=== PATIENT | male | born 1945 | race Caucasian/White ===

== ENCOUNTER 2018-05-31 13:36 | Emergency (ER) | payer MEDICARE, BC, OTHER ==
[~2018-05-31] VITALS: Ht 180.3 cm; Wt 84.4 kg
[2018-05-31] MEDS ORDERED: ONE-DAILY MULT1 EAC1 PO (13:51)
[2018-05-31] MEDS ORDERED: TOPAMAX 100 MG100 MG PO (13:51)
[2018-05-31] MEDS ORDERED: NEURONTIN 300300 M1 PO (13:51)
[2018-05-31 14:24] LABS: INFLUENZA B ANTIGEN None Detected (None Detect)
[2018-05-31] MEDS ORDERED: OSELB75 PO (14:37)
[2018-05-31 14:42] VITALS: BP 130/73
== END 2018-05-31 14:42 | disposition home or self-care (01) ==
LOC: M.ERS 13:36
PROVIDERS: Nurse Practitioner Family
DX: J10.1 Influenza due to other identified influenza virus with other respiratory manifestations (principal)

== ENCOUNTER 2020-06-16 08:52 | Inpatient (IN) | payer MEDICARE, BC, OTHER ==
[~2020-06-16] VITALS: Ht 180.3 cm; Wt 107.5 kg
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
--- NOTE | ~2020-06-16 | EEG ---
[address] [address] EEG STUDY REPORT Name: SAGE GONZALES Room: [address] IN M.R.#: [id number] Admission: 06/17/20 Attend Phys: Rudy Bob MD Discharge: Date of : 49 Report #: [id number] THIS REPORT FOR: cc: ROHIT CHENG MD, CHADWICK MD Khosla, Parveen K. MD ~ DOC #: [id number] Keith Pablo MD DATE OF SERVICE: 06/17/2020 This patient is being evaluated for the possibility of seizure. EEG was done by placing the electrode by standard 10-20 system of electrode placement. Both referential and sequential montages were used for recording. Background activity in this patient's EEG is about 9-10 Hz and 30 microvolt. The patient became drowsy and that is associated with bilateral slowing and vertex sharp waves. Photic stimulation is unremarkable. Throughout the record, no active epileptiform activity was noticed. IMPRESSION: This patient's EEG is intermixed with theta range slowing on both sides. That is a nonspecific abnormality which can occur with dementia, encephalopathy, effect of psychotropic medication. No active epileptiform activity was noticed during this record. Thank you very much for this referral. Keith Pablo MD PK/MAX By: [id number] [id number] Pablo MD /mary
[~2020-06-16 08:52] MED LIST: NEURONTIN 300300 M1 PO; ONE-DAILY MULT1 EAC1 PO; OSELB75 PO; TOPAMAX 100 MG100 MG PO
[2020-06-16 09:01] VITALS: BP 173/83
[2020-06-16] MEDS ORDERED: DEPAKOTE ER500 M1 PO (09:04)
[2020-06-16] MEDS ORDERED: PROSCAR 5MG TABL5 MG PO (09:04)
[2020-06-16] MEDS ORDERED: DEPAKOTE 250MG250 MG PO (09:04)
[2020-06-16] MEDS ORDERED: FLOMAX0.4 MG PO (09:05)
[2020-06-16] MEDS ORDERED: NEURONTIN 400M400 M2 PO (09:05)
[2020-06-16] MEDS ORDERED: XYZAL5 MG PO (09:05)
[2020-06-16] MEDS ORDERED: SUPER THERAVIT1 EACH PO (09:05)
[2020-06-16] MEDS ORDERED: MAGNESIUM CITR100 GM PO (09:05)
[2020-06-16] MEDS ORDERED: PRAVACHOL40 MG PO (09:05)
[2020-06-16] MEDS ORDERED: L-LYSINE500 M2 PO (09:06)
[2020-06-16] MEDS ORDERED: VITAMIN B125000 MCG PO (09:06)
[2020-06-16 09:50] LABS: ABSOLUTE EOSINOPHILS 0.1 thou/uL (0.0-0.7); ABSOLUTE LYMPHOCYTES 3.9 thou/uL (0.8-5.3); ABSOLUTE NEUTROPHILS 2.7 thou/uL (1.6-8.1); BASOPHILS 0.3 %; EOSINOPHILS 1.8 %; HEMATOCRIT 48.3 % (42.0-52.0); HEMOGLOBIN 16.2 gm/dL (14.0-18.0); LYMPHOCYTES 50.9 %; MCH 32.4 pg (26.0-34.0); MCHC 33.4 g/dL (28.0-37.0); MCV 97.1 fL (80.0-100.0); MONOCYTES 12.4 %; MPV 7.8 fl. (7.2-11.1); NUCLEATED RBCS 0 /100WBC; PLATELET COUNT* 180 thou/uL (150-400); POLYS 34.6 %; RBC 4.98 mil/uL (4.50-6.00); RDW-CV 13.1 % (10.5-14.5); WBC 7.7 thou/uL (4.0-11.0)
[2020-06-16 10:00] LABS: CALCIUM 9.1 mg/dL (8.5-10.1); CREATININE 1.1 mg/dL (0.6-1.3); POTASSIUM 4.1 mmol/L (3.5-5.1)
[2020-06-16 10:10] LABS: ALBUMIN 3.3 g/dL (3.4-5.0); TOTAL BILIRUBIN 0.5 mg/dL (<0.1-1.0); TOTAL PROTEIN 6.1 g/dL (6.4-8.2)
[2020-06-16 12:16] VITALS: BP 129/56
[2020-06-16 12:45] VITALS: BP 149/72
--- NOTE | 2020-06-16 15:46 | EKG ---
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 06/16/20 1546 0857 0857 Senthil Horton MD, [facility] /EPI
[2020-06-16 21:00] VITALS: BP 151/91
[2020-06-17] VITALS: BP 151/87
[2020-06-17 04:00] VITALS: BP 143/73
[2020-06-17 04:31] LABS: ABSOLUTE EOSINOPHILS 0.1 thou/uL (0.0-0.7); ABSOLUTE LYMPHOCYTES 4.1 thou/uL (0.8-5.3); ABSOLUTE MONOCYTES 1.4 thou/uL (0.0-1.2); ABSOLUTE NEUTROPHILS 5.9 thou/uL (1.6-8.1); BASOPHILS 0.3 %; EOSINOPHILS 0.8 %; HEMOGLOBIN 15.5 gm/dL (14.0-18.0); LYMPHOCYTES 35.4 %; MCH 32.4 pg (26.0-34.0); MCHC 33.1 g/dL (28.0-37.0); MCV 97.9 fL (80.0-100.0); MPV 8.1 fl. (7.2-11.1); NUCLEATED RBCS 0 /100WBC; PLATELET COUNT* 186 thou/uL (150-400); POLYS 51.5 %; RDW-CV 12.9 % (10.5-14.5); WBC 11.4 thou/uL (4.0-11.0)
[2020-06-17 04:36] LABS: CALCIUM 8.6 mg/dL (8.5-10.1); CREATININE 1.1 mg/dL (0.6-1.3)
--- NOTE | 2020-06-17 11:03 | EKG ---
[place] [address] ELECTROCARDIOGRAM REPORT Name: SAGE GONZALES Room: [address]#: [id number] Admission: 06/16/20 Attend Phys: Rudy Bob, Discharge: Date of : 49 Date of Service: 06/16/201940 Report #: [id number] THIS REPORT FOR: //name// 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 : 1945 Requested By: Rudy Bob Order Number: [id number] Stefan MD: Senthil Horton Measurements Intervals [place] Rate: 81 P: 34 FL: 168 QRS: 24 QRSD: 103 T: 68 QT: 398 QTc: 462 Interpretive Statements Sinus rhythm Borderline repol abnrm, anterolateral leads Baseline wander in lead(s) V1,V2,V3,V4,V5,V6 Compared to ECG 06/16/2020 08:57:48 No significant changes Electronically Signed On 06-17-2020 11:02:57 CDT by Senthil Horton [email or web address] <ELECTRONICALLY SIGNED> By: Senthil Horton MD, FAC 06/17/20 1102 40 40 Senthil Horton MD, [facility] /EPI
--- NOTE | 2020-06-17 11:24 | 2DMMODE ---
[place] [address] 2 D/M-MODE ECHOCARDIOGRAM Name: SAGE GONZALES Room: [address] Umair Sampson#: [id number] Admission: 06/16/20 Attend Phys: Rudy Bob, Discharge: Date of : 49 Date of Service: 06/17/20 1123 Report #: [id number] THIS REPORT FOR: cc: ROHIT CHENG MD, CHADWICK MD Blick, David R. MD [facility] ~ APPROVED REPORT Study performed: 06/17/2020 09:29:03 EXAM: Comprehensive 2D, Doppler, and color-flow Echocardiogram Patient Location: In-Patient Room #: [facility] Status: routine BSA: 2.27 HR: 64 bpm BP: 143/73 mmHg Rhythm: NSR Other Information Study Quality: Good Indications Chest Pain 2D Dimensions IVSd: 12.13 (7-11mm) LVOT Diam: 20.44 (18-24mm) LVDd: 42.76 mm PWd: 10.67 (7-11mm) Ascending Ao: 41.51 (22-36mm) LVDs: 26.34 (25-40mm) Aortic Root: 36.16 mm Volumes Left Atrial Volume (Systole) LA ESV Index: 26.20 mL/m2 Aortic Valve AoV Peak Kvng.: 1.97 m/s AO Peak Gr.: 15.49 mmHg LVOT Max P.08 mmHg AO Mean Gr.: 9.69 mmHg LVOT Mean P.49 mmHg LVOT Max V: 0.88 m/s AO V2 VTI: 40.05 cm LVOT Mean V: 0.56 m/s GEORGE (VTI): 1.67 cm2 LVOT V1 VTI: 20.41 [place] [address] 2 D/M-MODE ECHOCARDIOGRAM Name: SAGE GONZALES Room: [address]#: [id number] Admission: 06/16/20 Attend Phys: Rudy Bob, Discharge: Date of : 49 Date of Service: 06/17/20 1123 Report #: [id number] Mitral Valve E/A Ratio: 0.89 MV Decel. Time: 284.87 ms MV E Max Kvng.: 0.70 m/s MV PHT: 82.61 ms MVA (PHT): 2.66 cm2 TDI E/Lateral E': 6.36 E/Medial E': 10.00 Medial E' Kvng.: 0.07 m/s Lateral E' Kvng.: 0.11 m/s Pulmonary Valve PV Peak Kvng.: 0.94 m/s PV Peak Gr.: 3.52 mmHg Left Ventricle The left ventricle is normal size. There is normal LV segmental wall motion. There is normal left ventricular wall thickness. Left ventricular systolic function is normal. The left ventricular ejection fraction is within the normal range. LVEF is 55-60%. Grade I - abnormal relaxation pattern. Right Ventricle The right ventricle is normal size. The right ventricular systolic function is normal. Atria The left atrium size is normal. The right atrium size is normal. Aortic Valve Aortic valve is calcified. Trace aortic regurgitation. Mild aortic stenosis. Mitral Valve The mitral valve is normal in structure. There is no mitral valve regurgitation noted. No evidence of mitral valve stenosis. Tricuspid Valve The tricuspid valve is normal in structure. Unable to assess PA pressure. Trace tricuspid regurgitation. Pulmonic Valve The pulmonary valve is normal in structure. There is no pulmonic [place] [address] 2 D/M-MODE ECHOCARDIOGRAM Name: CHRISTIANSAGE Dhaval Room: [address]#: [id number] Admission: 06/16/20 Attend Phys: Rudy Bob, Discharge: Date of : 49 Date of Service: 06/17/20 1123 Report #: [id number] Great Vessels Aortic root is mildly dilated. IVC is normal in size and collapses >50% with inspiration. Pericardium There is no pericardial effusion. <Conclusion> LVEF is 55-60%. Mild aortic stenosis. <ELECTRONICALLY SIGNED> By: Senthil Horton MD, FACC 06/17/20 1123 1123 112 Senthil Horton MD, FACC /INF
[2020-06-17 12:11] VITALS: BP 97/58
[2020-06-17 16:27] VITALS: BP 161/79
[2020-06-17 20:00] VITALS: BP 131/85
[2020-06-18 00:12] VITALS: BP 139/92
[2020-06-18 04:53] VITALS: BP 139/88
[2020-06-18 05:42] LABS: CHOLESTEROL 178 mg/dL (<200); HDL CHOLESTEROL 58 mg/dL (>40); LDL CHOLESTEROL 95 mg/dL (<100); TC:HDL 3.1 Ratio (Not establshd); TRIGLYCERIDE 127 mg/dL (<150); VLDL 25 mg/dL (<40)
[2020-06-18 05:55] LABS: SERUM ASSESSMENT CLEAR
[2020-06-18 09:42] VITALS: BP 139/88
[2020-06-18 11:39] VITALS: BP 141/78
[2020-06-18 14:20] VITALS: BP 141/78
--- NOTE | 2020-06-20 09:45 | EKG ---
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: : 1945 Requested By: Terrence Waldron Order Number: [id number] Reading MD: Senthil Horton Measurements Intervals [place] Rate: 79 P: 27 SD: 163 QRS: -23 QRSD: 101 T: 54 QT: 369 QTc: 424 Interpretive Statements Sinus rhythm Borderline left axis deviation Abnormal R-wave progression, late transition Compared to ECG 06/16/2020 19:41:46 No significant changes Electronically Signed On 06-20-2020 9:45:47 CDT by Senthil Horton [email or web address] <ELECTRONICALLY SIGNED> By: Senthil Horton MD, [facility] 06/20/20 0945 1026 1026 Senthil Horton MD, [facility] /EPI
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
== END 2020-06-18 14:45 | disposition home or self-care (01) | DRG 313 ==
LOC: M.ERS 08:52 → M.TBA-ER 10:22 → M.2W 12:24
PROVIDERS: Emergency Medicine Emergency Medical Services; Internal Medicine Cardiovascular Disease; ADMIT Internal Medicine; ATTEND Internal Medicine
DX: R07.89 Other chest pain (principal); R00.1 Bradycardia, unspecified; G40.909 Epilepsy, unspecified, not intractable, without status epilepticus; E78.5 Hyperlipidemia, unspecified; Z20.822 Contact with and (suspected) exposure to COVID-19; Z79.899 Other long term (current) drug therapy

== ENCOUNTER → 2020-07-07 | Outpatient (CLI) | payer MEDICARE, BC ==
[~2020-07-07] MED LIST changes: +DEPAKOTE 250MG250 MG PO; +DEPAKOTE ER500 M1 PO; +FLOMAX0.4 MG PO; +L-LYSINE500 M2 PO; +MAGNESIUM CITR100 GM PO; +NEURONTIN 400M400 M2 PO; +PRAVACHOL40 MG PO; +PROSCAR 5MG TABL5 MG PO; +SUPER THERAVIT1 EACH PO; +VITAMIN B125000 MCG PO; +XYZAL5 MG PO
--- NOTE | 2020-07-07 17:10 | CARDNUC ---
[place] [address] CARDIAC NUCLEAR IMAGING REPORT Name: SAGE GONZALES Room: [facility]#: [id number] Admission: 07/07/20 Attend Phys: Terrence Waldron, Discharge: Date of : 49 Date of Service: 07/07/20 1710 Report #: [id number] THIS REPORT FOR: cc: ROHIT CHENG MD, CHADWICK MD Biggs, F. Douglas MD [facility] ~ APPROVED REPORT Imaging Protocol: Rest Tc-99m/Stress Tc-99m 1 day Study performed: 07/07/2020 12:00:00 Indication: Chest pain, Dyspnea Patient Location: Out-Patient Stress Tech: Addie Javier Stress Nurse: Rossy Lerma RN NM Tech:ROB Koch Ht: 5 ft 11 in Wt: 225 lbs BSA: 2.22 m2 BMI: 31.37 Medical History Medical History: Arrhythmia, Seizures Medications: pravastatin Allergies: No known drug allergies Cardiac Risk Factors: Age, Tobacco History (Former) Exercise History: Sedentary Resting Data Rest SPECT myocardial perfusion imaging was performed in supine position 30 minutes following the intravenous injection of 10.0 mCi of Tc-99m Sestamibi. Time of rest injection: 1255 Date: 07/07/2020 The images were gated to evaluate regional wall motion and calculate left ventricular ejection fraction. Administration Route: IV Administration Site: Right Hand Pharmacologic Stress Pharmacologic stress test was performed by injecting Regadenoson 0.4 mg IV push over 10-15 seconds immediately followed by the intravenous injection of 34.5 mCi of Tc-99m Sestamibi. Time of stress injection: 1425 Date: 07/07/2020 Administration Route: IV Administration Site: [place] [address] CARDIAC NUCLEAR IMAGING REPORT Name: SAGE GONZALES Room: [facility]#: [id number] Admission: 07/07/20 Attend Phys: Terrence Waldron, Discharge: Date of : 49 Date of Service: 07/07/20 1710 Report #: [id number] Gated Stress SPECT was performed 40 minutes after stress injection. The images were gated to evaluate regional wall motion and calculate left ventricular ejection fraction. Stress only was performed in the Supine position. Stress Test Details Stress Test: Pharmacologic stress testing performed using 0.4 mg of regadenoson per 5 mL given IV over 10 seconds. Reason for pharmacologic stress test: physical limitation. HR Max Heart Rate (APMHR): 148 bpm Resting HR: 80 bpm Target HR (85% APMHR): 125 bpm Max HR Achieved: 110 bpm % of APMHR: 74 Recovery HR: 94 bpm HR response to stress: Normal HR response to stress BP Resting BP: 138/62 mmHg Max BP: 150/69 mmHg Recovery BP: 147/76 mmHg BP response to stress: Normal blood pressure response to stress. ECG Resting ECG: Sinus Rhythm, normal EKG Stress ECG: Sinus Rhythm, normal EKG ST Change: None Arrhythmia: None Recovery ECG: Sinus Rhythm, normal EKG Recovery ST Change: None Recovery Arrhythmia: None Clinical Reason for Termination: Completed protocol Stress Symptoms: None Nurse Comments pt has unsteady gait and slow cognition. Pt did verify tat he took his seizure medicatin (depakote) this am Stress ECG Conclusion Clinical: Non-ischemic Non-diagnostic pharmacologic EKG stress due to failure [place] [address] CARDIAC NUCLEAR IMAGING REPORT Name: SAGE GONZALES Room: [facility]#: [id number] Admission: 07/07/20 Attend Phys: Terrence Waldron, Discharge: Date of : 49 Date of Service: 07/07/20 1710 Report #: [id number] Study Quality Study: Good Artifact: No artifact Lung Uptake: Normal Study Data At rest, the left ventricular ejection fraction was 58%.. Post stress, the left ventricular ejection was 58%.. SSS: 5 SRS: For SDS: 1 Perfusion The resting study was normal there were no defects seen. The post stress images were also normal there were no defects seen. Prone images could not be obtained. Normal perfusion on both the stress and rest images. Images were reviewed using [employer]. Wall Motion Normal left ventricular wall motion. Nuclear Conclusion ECG Findings: non-diagnostic Clinical Findings: negative for ischemia Nuclear Findings: negative for ischemia Exercise Capacity: not assessed Left Ventricular Function: normal Risk Study: low Normal study. No scintigraphic evidence for myocardial ischemia or scar. <Conclusion> Clinical: Non-ischemic Non-diagnostic pharmacologic EKG stress due to failure to attain target HR. <ELECTRONICALLY SIGNED> By: Terrence Waldron MD, FACC 07/07/201709 09 09 Terrence Waldron MD, FACC /INF
== END ==
LOC: M.NUC 07-04 13:00 → M.CRD 07-04 13:00 → M.NUC 11:51 → M.RAD 11:51 → M.NUC 13:00
PROVIDERS: ATTEND Internal Medicine
DX: R07.9 Chest pain, unspecified (principal); R06.02 Shortness of breath; R06.00 Dyspnea, unspecified

== ENCOUNTER 2021-03-08 09:34 | Emergency (ER) | payer MEDICARE, BC, OTHER ==
[~2021-03-08] VITALS: Ht 182.9 cm; Wt 95.7 kg
[2021-03-08] MEDS ORDERED: NEURONTIN 300M300 M2 PO (09:59)
[2021-03-08] MEDS ORDERED: ESCITALOPRA5 MG/5 ML PO (09:59)
[2021-03-08] MEDS ORDERED: LEVO-T25 MCG PO (10:00)
[2021-03-08] MEDS ORDERED: FLOMAX0.4 MG PO (10:00)
[2021-03-08] MEDS ORDERED: TRIAMTERENE/HCT1 CA1 PO (10:01)
[2021-03-08] MEDS ORDERED: ASA81BEC PO (10:01)
[2021-03-08] MEDS ORDERED: VITAMIN B122500 MC1 PO (10:01)
[2021-03-08] MEDS ORDERED: XYZAL5 MG PO (10:02)
[2021-03-08 10:04] LABS: ABSOLUTE LYMPHOCYTES 0.9 thou/uL (0.8-5.3); ABSOLUTE MONOCYTES 0.8 thou/uL (0.0-1.2); ABSOLUTE NEUTROPHILS 7.8 thou/uL (1.6-8.1); BASOPHILS 0.5 %; EOSINOPHILS 0.1 %; HEMATOCRIT 51.1 % (42.0-52.0); HEMOGLOBIN 17.5 gm/dL (14.0-18.0); LYMPHOCYTES 9.2 %; MCH 33.3 pg (26.0-34.0); MCHC 34.3 g/dL (28.0-37.0); MCV 96.9 fL (80.0-100.0); MPV 8.5 fl. (7.2-11.1); NUCLEATED RBCS 0 /100WBC; PLATELET COUNT* 157 thou/uL (150-400); POLYS 82.2 %; RBC 5.28 mil/uL (4.50-6.00); RDW-CV 12.6 % (10.5-14.5); WBC 9.5 thou/uL (4.0-11.0)
[2021-03-08 10:16] LABS: CALCIUM 9.6 mg/dL (8.5-10.1); CREATININE 1.3 mg/dL (0.6-1.3); POTASSIUM 4.8 mmol/L (3.5-5.1)
[2021-03-08 10:28] LABS: TOTAL BILIRUBIN 0.7 mg/dL (<0.1-1.0); TOTAL PROTEIN 6.9 g/dL (6.4-8.2)
[2021-03-08 10:56] VITALS: BP 111/78
--- NOTE | 2021-03-08 15:14 | EKG ---
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 03/08/21 1514 0 0 Senthil Horton MD, FACC /EPI
== END 2021-03-08 10:57 | disposition home or self-care (01) ==
LOC: M.ERS 09:34
PROVIDERS: Family Medicine
DX: S40.811A Abrasion of right upper arm, initial encounter (principal); S80.811A Abrasion, right lower leg, initial encounter; R56.9 Unspecified convulsions; Z79.899 Other long term (current) drug therapy; W19.XXXA Unspecified fall, initial encounter; Y93.89 Activity, other specified; Y92.89 Other specified places as the place of occurrence of the external cause; Y99.8 Other external cause status